=== PATIENT | female | born 1960 | race African-American/Black ===

== ENCOUNTER 2017-05-10 19:06 | Observation (INO) | payer OTHER ==
[~2017-05-10] VITALS: Ht 182.9 cm; Wt 124.7 kg
[~2017-05-10 19:06] MED LIST: ASPI-1160 PO; ENAL2.5T PO; HYDR25TA PO; MULT10VI5 PO; SIMV10TA6 PO
[2017-05-10] MEDS ORDERED: NITROGLYCERIN OINT 1GM/INCH UDPKT TD STA (19:28)
[2017-05-10] MEDS ORDERED: MORPHINE SULFATE 4 MG/ML CPJ (NOT FOR IM USE) IV STA (19:28)
[2017-05-10] MEDS ORDERED: ASPIRIN 325MG EC TABLET PO ONE (19:30)
[2017-05-10] MEDS ORDERED: METOPROLOL TARTRATE 5MG/5ML VIAL IV ONE (19:30)
[2017-05-10] MEDS ORDERED: CLONIDINE 0.2MG TABLET PO ONE (19:30)
[2017-05-10 19:54] LABS: BASOPHILS % 0.6 % (0.0-2.0); EOSINOPHILS % 2.2 % (0.0-5.0); HEMATOCRIT. 41.3 % (36.0-48.0); HEMOGLOBIN. 13.9 g/dL (12.0-16.0); LYMPHOCYTES % 49.4 % (20.0-50.0); MEAN CORPUSCULAR HEMOGLOBIN 28.9 pg (28.0-32.0); MEAN CORPUSCULAR VOLUME 85.8 fL (81.0-99.0); MEAN PLATELET VOLUME 9.7 fl (7.4-10.4); MONOCYTES % 5.5 % (2.0-8.0); NEUTROPHILS % 42.3 % (40.0-76.0); PLATELET 177 x1000/uL (130-400); RED BLOOD CELL COUNT 4.82 mill/uL (4.2-5.4); RED CELL DISTRIBUTION WIDTH 13.1 % (11.6-14.6)
[2017-05-10 20:08] LABS: CHLORIDE 101 mEq/L (98-107)
[2017-05-10] MEDS ORDERED: INSULIN REGULAR (HUMULIN R) 300UNITS/3ML SUBCUT ONE (23:00)
[2017-05-10] MEDS ORDERED: ACETAMINOPHEN 325MG TABLET PO ONE (23:00)
[2017-05-10] MEDS ORDERED: METF-414 PO (23:49)
[2017-05-10] MEDS ORDERED: SIMV10TA6 PO (23:49)
[2017-05-10] MEDS ORDERED: FURO20TA4 PO (23:49)
[2017-05-10] MEDS ORDERED: LISI-604 PO (23:49)
[2017-05-10 23:50] VITALS: BP 103/76
[2017-05-11] VITALS: BP 103/76
[2017-05-11] MEDS ORDERED: IPRATROPIUM/ALBUTEROL 0.5-3(2.5)MG/3ML NEB HHN PRN (01:00)
[2017-05-11] MEDS ORDERED: DEXTROSE 50% WATER 50ML SYRINGE IV PRN (01:00)
[2017-05-11] MEDS ORDERED: ACETAMINOPHEN 325MG TABLET PO PRN (01:00)
[2017-05-11 04:00] VITALS: BP 131/65
[2017-05-11] MEDS: BLOOD SUGAR DIAGNOSTIC STRIP TEST SCH ×2 (06:40→11:45)
[2017-05-11] MEDS: INSULIN LISPRO 100 UNITS/ML SUBCUT SCH ×2 (06:40→13:28)
[2017-05-11] MEDS ORDERED: PANTOPRAZOLE 40MG DR TABLET PO SCH (06:45)
[2017-05-11] MEDS ORDERED: METFORMIN HCL 500MG TABLET PO SCH (07:15)
[2017-05-11 07:21] LABS: BASOPHILS % 0.7 % (0.0-2.0); EOSINOPHILS % 2.4 % (0.0-5.0); HEMATOCRIT. 38.8 % (36.0-48.0); HEMOGLOBIN. 12.9 g/dL (12.0-16.0); LYMPHOCYTES % 50.6 % (20.0-50.0); MEAN CORPUSCULAR HEMOGLOBIN 28.3 pg (28.0-32.0); MONOCYTES % 5.1 % (2.0-8.0); NEUTROPHILS % 41.2 % (40.0-76.0); PLATELET 170 x1000/uL (130-400); RED BLOOD CELL COUNT 4.57 mill/uL (4.2-5.4); RED CELL DISTRIBUTION WIDTH 13.4 % (11.6-14.6)
[2017-05-11 08:00] VITALS: BP 109/70
[2017-05-11 08:13] LABS: CHLORIDE 104 mEq/L (98-107)
[2017-05-11 08:15] LABS: HDL CHOLESTEROL 30 mg/dL (40-59); LDL CHOLESTEROL 123 mg/dL (5-100)
[2017-05-11 08:30] LABS: CREATINE KINASE 74 IU/L (26-192); CREATINE KINASE MB FRACTION 0.9 ng/mL (0.5-3.6)
[2017-05-11] MEDS ORDERED: LISINOPRIL 20MG TABLET PO SCH (09:00)
[2017-05-11] MEDS ORDERED: ENOXAPARIN 30MG/0.3ML SYR SUBCUT SCH (09:00)
[2017-05-11] MEDS ORDERED: ASPIRIN 81MG TABLET PO SCH (09:00)
[2017-05-11] MEDS ORDERED: FUROSEMIDE 20MG TABLET PO SCH (09:00)
[2017-05-11] MEDS ORDERED: REGADENOSON 0.4 MG/5 ML IV NR (09:30)
[2017-05-11] MEDS ORDERED: REGADENOSON 0.4 MG/5 ML IV ONE (11:01)
[2017-05-11 12:00] VITALS: BP 154/89
[2017-05-11 13:30] LABS: T4 FREE 1.04 ng/dL (0.76-1.46)
[2017-05-11 15:00] VITALS: BP 154/89
[2017-05-11] MEDS ORDERED: SODIUM CHLORIDE 0.9% 10ML VIAL ONE (15:15)
[2017-05-11] MEDS ORDERED: MEDICATION NOT ON FORMULARY EA (Simvastatin 1 TAB) PO SCH (17:00)
[2017-05-11] MEDS ORDERED: ATORVASTATIN CALCIUM 10MG TABLET PO SCH (21:00)
[2017-05-12] MEDS ORDERED: ASPIRIN 81MG TABLET PO SCH (09:00)
== END 2017-05-11 15:15 | disposition home or self-care (01) ==
LOC: ER 19:23 → INTOOBSV 21:46 → 5WST 21:46 → ENRESERV 22:11 → 5WST 05-11 00:08
PROVIDERS: ADMIT Internal Medicine; ATTEND Internal Medicine
DX: R07.2 Precordial pain (principal); J45.909 Unspecified asthma, uncomplicated; I10 Essential (primary) hypertension; E78.5 Hyperlipidemia, unspecified; E11.9 Type 2 diabetes mellitus without complications; Z91.14 Patient's other noncompliance with medication regimen
CPT/HCPCS: 36415; 71045; 78452; 80048; 80053; 80061; 82550; 82553; 82962; 83036; 83690; 83880; 84439; 84443; 84484; 85025; 85379; 93005; 93017; 93306; 93970; 96372; 96374; 99285; A4216; A9500; G0378; J1650; J1815; J2270; J2785; J3490